=== PATIENT | male | born 1980 | race African-American/Black ===

== ENCOUNTER 2019-11-15 01:02 | Emergency (ER) | payer OTHER ==
[~2019-11-15] VITALS: Ht 167.6 cm; Wt 74.8 kg
--- NOTE | 2019-11-15 01:25 | NUR ---
Note undone in EDM - 11/15/19 at 0214 by [email or web address] Nurse Note: Pt walked in c/o self harming thoughts for few days. Pt stated personal stressors are causing him to feel overwhelmed, depressed and have the urge to cut his wrists. Pt admitted to drinking ETOH and smoking THC for emotional support. Pt is showing regressing symptoms such as bed wetting and taking in a child like tone. Pt hx depression, bipolar. RT hand 22 gauge IV estbalished, blood drawn and sent to lab. Urine collected and sent to lab. All safety measures met; will continue to charles.
[2019-11-15] MEDS ORDERED: Ketorolac 30mg Inj IM ONE (01:45)
[2019-11-15 01:47] LABS: APPEARANCE,URINE CLEAR; BILIRUBIN, URINE 1+ (NEGATIVE); COLOR,URINE BROWN; GLUCOSE, URINE (UA) NEGATIVE (NEGATIVE); KETONES,URINE 1+ (NEGATIVE); LEUKOCYTE ESTERASE ,URINE 1+ (NEGATIVE); NITRITE,URINE NEGATIVE (NEGATIVE); PH,URINE 7 (4.5-8.0); PROTEIN,URINE NEGATIVE (NEGATIVE); UROBILINOGEN,URINE 12 MG/DL (0.0-1.0)
[2019-11-15 01:53] VITALS: BP 143/84
--- NOTE | 2019-11-15 01:55 | NUR ---
Nurse Note: Pt walked in c/o LT flank pain since 11/13 AM. Pt stated acute onset of intense 9/10 sharp and aching pain. Pain non radiating. Pt stated unk cause; denies trauma, denies difficutly urination and BM, denies n/v. Urine collected and sent to lab.
--- NOTE | 2019-11-15 02:07 | NUR ---
Nurse Note: 20 gauge LT AC IV estblished; blood drawn and sent to lab. IV site clean and secured. All safety measures met; will continue to montior.
[2019-11-15 02:24] LABS: HEMATOCRIT 44.7 % (42.0-52.0); HEMOGLOBIN 15.6 G/DL (14.2-18.0); MEAN CORPUSCULAR VOLUME 96 FL (80-99); PLATELET COUNT 43 K/UL (150-450); RED BLOOD COUNT 4.65 M/UL (4.70-6.10); RED CELL DISTRIBUTION WIDTH 12.4 % (11.6-14.8)
--- NOTE | 2019-11-15 02:29 | Emergency Room Report ---
History of Present Illness General Chief Complaint: Back Pain-No Injury Source: Patient Present Illness HPI 38-year-old male with history of autoimmune hepatitis not on any medications here with left lower back pain. Patient says that he has been feeling the pain on and off over the past 24 hours. Says he has strained muscles in his lower back before but says "is never been this bad." Pain is dull in nature, located in the left lumbar paraspinal region, does not otherwise radiate. Patient says that he does not drink water very frequently and says "my urine has been really dark lately. I tried to drink but I keep forgetting." Denies fevers, chills, chest pain, palpitation, shortness of breath, other back pain, abdominal pain, nausea, vomiting, diarrhea, dysuria. Allergies: Coded Allergies: PROCHLORPERAZINE (Verified Allergy, Unknown, 05/19/15) COVID-19 Screening Contact w/high risk pt: No Experienced COVID-19 symptoms?: No COVID-19 Testing performed WAREHOUSE RECEIVER: No Nursing Documentation-[facility] Past Medical History: No History, Except For Hx Diabetes: Yes Hx Gastrointestinal Problems: Yes - liver disease, hepatitis Physical Exam Vital Signs Date Time Temp Pulse Resp B/P (MAP) Pulse Ox O2 Delivery O2 Flow Rate FiO2 11/15/19 01:13 97.5 71 16 143/84 (103) 97 Room Air Sp02 EP Interpretation: reviewed, normal General Appearance: no apparent distress, alert, GCS 15, non-toxic Head: normocephalic, atraumatic Eyes: bilateral eye normal inspection, bilateral eye PERRL ENT: hearing grossly normal, normal pharynx, no angioedema, normal voice Neck: full range of motion, supple/symm/no masses Respiratory: chest non-tender, lungs clear, normal breath sounds, speaking full sentences Cardiovascular #1: regular rate, rhythm, no edema Cardiovascular #2: 2+ carotid (R), 2+ carotid (L), 2+ radial (R), 2+ radial (L) , 2+ dorsalis pedis (R), 2+ dorsalis pedis (L) Gastrointestinal: normal bowel sounds, non tender, soft, non-distended, no guarding, no rebound Rectal: deferred Genitourinary: normal inspection, no CVA tenderness Musculoskeletal: back normal, normal range of motion, calf tenderness, gait/ station normal, other - Left lumbar paraspinal tenderness on palpation. Mild left flank pain on palpation Neurologic: alert, motor strength/tone normal, oriented x3, sensory intact, responsive, speech normal Psychiatric: judgement/insight normal, memory normal, mood/affect normal, no suicidal/homicidal ideation Reflexes: 3+ bicep (R), 3+ bicep (L), 3+ tricep (R), 3+ tricep (L), 3+ knee (R) , 3+ knee (L) Lymphatic: no adenopathy Medical Decision Making Diagnostic Impression: Primary Impression: Back pain ER Course Laboratory Tests Test 11/15/19 01:35 11/15/19 02:01 Urine Color Brown Urine Appearance Clear Urine pH 7 (4.5-8.0) Urine Specific [facility] 1.015 (1.005-1.035) Urine Protein Negative (NEGATIVE) Urine Glucose (UA) Negative (NEGATIVE) Urine Ketones 1+ (NEGATIVE) H Urine Blood Negative (NEGATIVE) Urine Nitrite Negative (NEGATIVE) Urine Bilirubin 1+ (NEGATIVE) H Urine Ictotest Negative (NEGATIVE) Urine Urobilinogen 12 MG/DL (0.0-1.0) H Urine Leukocyte Esterase 1+ (NEGATIVE) H Urine RBC 2-4 /HPF (0 - 0) H Urine WBC 0-2 /HPF (0 - 0) Urine Squamous Epithelial Cells Occasional /LPF Urine Bacteria Few /HPF (NONE) Urine Mucus Occasional /LPF White Blood Count 4.0 K/UL (4.8-10.8) L Red Blood Count 4.65 M/UL (4.70-6.10) L Hemoglobin 15.6 G/DL (14.2-18.0) Hematocrit 44.7 % (42.0-52.0) Mean Corpuscular Volume 96 FL (80-99) Mean Corpuscular Hemoglobin 33.4 PG (27.0-31.0) H Mean Corpuscular Hemoglobin Concent 34.9 G/DL (32.0-36.0) Red Cell Distribution Width 12.4 % (11.6-14.8) Platelet Count 43 K/UL (150-450) L Mean Platelet Volume 15.0 FL (6.5-10.1) H Neutrophils (%) (Auto) % (45.0-75.0) Lymphocytes (%) (Auto) % (20.0-45.0) Monocytes (%) (Auto) % (1.0-10.0) Eosinophils (%) (Auto) % (0.0-3.0) Basophils (%) (Auto) % (0.0-2.0) Differential Total Cells Counted 100 Neutrophils % (Manual) 58 % (45-75) Lymphocytes % (Manual) 30 % (20-45) Monocytes % (Manual) 8 % (1-10) Eosinophils % (Manual) 4 % (0-3) H Basophils % (Manual) 0 % (0-2) Band Neutrophils 0 % (0-8) Platelet Estimate Decreased L Platelet Morphology Normal Sodium Level 136 MMOL/L (136-145) Potassium Level 3.4 MMOL/L (3.5-5.1) L Chloride Level 104 MMOL/L (98-107) Carbon Dioxide Level 26 MMOL/L (21-32) Anion Gap 6 mmol/L (5-15) Blood Urea Nitrogen 11 mg/dL (7-18) Creatinine 1.3 MG/DL (0.55-1.30) Estimated Glomerular Filtration Rate > 60 mL/min (>60) Glucose Level 100 MG/DL (74-106) Calcium Level 7.8 MG/DL (8.5-10.1) L Total Bilirubin 3.4 MG/DL (0.2-1.0) H Direct Bilirubin 1.0 MG/DL (0.0-0.3) H Aspartate Amino Transferase (AST) 55 U/L (15-37) H Alanine Aminotransferase (ALT) 30 U/L (12-78) Alkaline Phosphatase 190 U/L (46-116) H Total Protein 6.6 G/DL (6.4-8.2) Albumin 2.8 G/DL (3.4-5.0) L Globulin 3.8 g/dL Albumin/Globulin Ratio 0.7 (1.0-2.7) L 38-year-old male here with nontraumatic low back pain. Patient was hemodynamically stable in the emergency department and had lumbar paraspinal tenderness on palpation. CBC and CMP were largely unremarkable. Patient had a mild elevation in his LFTs but said "that is normal for me." He was given pain medication and muscle relaxant with good resolution of his pain. Given prescription for the same medications and told to follow-up with his primary care provider. Discharged in stable condition. Last Vital Signs Date Time Temp Pulse Resp B/P (MAP) Pulse Ox O2 Delivery O2 Flow Rate FiO2 11/15/19 01:53 97.5 77 16 143/84 97 Room Air Scripts Lidocaine Patch* (Lidoderm Patch*) 1 Each Adh..patch 1 PATCH TOPIC DAILY, #7 PATCH 0 Refills Patch(es) may remain in place for up to 12 hours in any 24-hour period. Prov: Tod Khna M.D. 11/15/19 Cyclobenzaprine Hcl* (FLEXERIL*) 10 Mg Tablet 10 MG ORAL TID PRN for For Pain for 7 Days, #15 TAB Prov: Tod Khan M.D. 11/15/19 Ibuprofen* (MOTRIN*) 600 Mg Tablet 600 MG ORAL Q6H PRN for FOR PAIN, #20 TAB 0 Refills Prov: Tod Khan M.D. 11/15/19 Referrals: [facility],REFERRING (PCP) Tod Khan M.D. Nov 15, 2019 02:29
[2019-11-15 02:35] LABS: ANION GAP 6 mmol/L (5-15); BLOOD UREA NITROGEN 11 mg/dL (7-18); CALCIUM 7.8 MG/DL (8.5-10.1); CARBON DIOXIDE 26 MMOL/L (21-32); CHLORIDE 104 MMOL/L (98-107); CREATININE 1.3 MG/DL (0.55-1.30); POTASSIUM 3.4 MMOL/L (3.5-5.1); SODIUM 136 MMOL/L (136-145)
[2019-11-15 02:43] LABS: ALANINE AMINOTRANSFERASE 30 U/L (12-78); ALBUMIN 2.8 G/DL (3.4-5.0); ALBUMIN/GLOBULIN RATIO 0.7 (1.0-2.7); ALKALINE PHOSPHATASE 190 U/L (46-116); ASPARTATE AMINO TRANSFERASE 55 U/L (15-37); BILIRUBIN,TOTAL 3.4 MG/DL (0.2-1.0)
[2019-11-15] MEDS ORDERED: CYCLOBENZAPRINE10 MG ORAL (03:18)
[2019-11-15] MEDS ORDERED: IBUPROFEN600 M1 ORAL (03:18)
[2019-11-15] MEDS ORDERED: LIDODERM700 M1 TOPIC (03:18)
[2019-11-15 03:28] VITALS: BP 134/78
--- NOTE | 2019-11-15 03:28 | NUR ---
ER DISCHARGE NOTE: Patient is cleared to be discharged per ERMD, pt is aox4, on room air, with stable vital signs. Pt states pain is better than before and rates 2/10 pain. Denies dizziness, n/v. Pt was given dc and prescription instructions; pt was able to verbalize understanding. Instructed pt to follow up with primary care physican within one week. Pt ID band and iv site removed without complications; site clean and bandaged. Pt is able to ambulate with steady gait. Pt took all belongings.
== END 2019-11-15 03:28 | disposition home or self-care (01) ==
LOC: EMR 01:45
DX: M54.5 Low back pain (principal); Z88.8 Allergy status to other drugs, medicaments and biological substances; E11.9 Type 2 diabetes mellitus without complications; K76.9 Liver disease, unspecified
CPT/HCPCS: 36415; 80053; 81003; 82248; 85007; 85025; 96360; 96372; J1885; J7030; Z7502; 99284